=== PATIENT | male | born 1955 | race Caucasian/White ===

== ENCOUNTER 2020-04-06 07:09 | Outpatient (CLI) | payer BC, SELFPAY ==
[2020-04-06 07:24] LABS: Basophils Percent Auto 0.5 % (0.2-1.2); Eosinophils Absolute Auto 0.2 K/mm3 (0-0.3); Eosinophils Percent Auto 2.7 % (0-4.4); Hematocrit 46.5 % (42.0-52.0); Hemoglobin 15.9 g/dL (14.0-18.0); Immature Granulocyte Absolute 0.04 K/mm3 (0.00-0.031); Immature Granulocyte Percent A 0.5 % (0-0.5); Lymphocytes Absolute Auto 2.79 K/mm3 (0.9-3.2); Mean Corpuscular HGB Conc 34.2 g/dl (32-36); Mean Corpuscular Hemoglobin 31.4 pg (26-34); Mean Corpuscular Volume 91.9 fl (80-100); Mean Platelet Volume 10.5 fl (7.4-10.4); Monocytes Absolute Auto 0.8 K/mm3 (0.1-0.6); Monocytes Percent Auto 10.7 % (2.6-8.5); Neutrophils Absolute Auto 3.8 K/mm3 (1.3-6.7); Neutrophils Percent Auto 49.6 % (45.5-73.1); Platelet Count Result 220 k/mm3 (150-375); Red Blood Count 5.06 M/mm3 (4.6-6.20); Red Cell Distribution Width 12.7 % (11.5-14.5); White Blood Count 7.7 K/mm3 (4.5-10.0)
[2020-04-06 08:47] LABS: Alanine Aminotransferase 25 U/L (4-50); Albumin Level 4.2 g/dL (3.5-5.1); Alkaline Phosphatase 40 U/L (38-126); Aspartate Amino Transferase 24 U/L (17-59); Bilirubin,Total 0.6 mg/dL (0.2-1.3); Blood Urea Nitrogen 16 mg/dL (9-20); Carbon Dioxide 30 mmol/L (22-30); Chloride 104 mmol/L (98-107); Cholesterol 138 mg/dL (0-200); Estimated Glomerular Filt Rate 56; Glucose 107 mg/dL (75-110); HDL Direct 45 mg/dL; Potassium 4.1 mmol/L (3.4-5.0); Sodium 140 mmol/L (137-145); Triglycerides 66 mg/dL (<150)
[2020-04-06 08:59] LABS: LDL Cholesterol Direct 85 mg/dL
[2020-04-07 17:44] LABS: Homocysteine 8.6 umol/L (<11.4)
== END 2020-04-06 07:10 | disposition home or self-care (01) ==
PROVIDERS: PCP Internal Medicine; Visit Provider Internal Medicine
DX: I10 Essential (primary) hypertension (principal); Z79.899 Other long term (current) drug therapy; Z12.5 Encounter for screening for malignant neoplasm of prostate
CPT/HCPCS: 36415; 80053; 80061; 83090; 84153; 84443; 85025; G0103

== ENCOUNTER 2020-11-27 06:37 | Outpatient (CLI) | payer BC, SELFPAY ==
[2020-11-27 07:24] LABS: Basophils Percent Auto 0.5 % (0.2-1.2); Eosinophils Absolute Auto 0.2 K/mm3 (0-0.3); Eosinophils Percent Auto 2.6 % (0-4.4); Hematocrit 44.6 % (42.0-52.0); Hemoglobin 15.4 g/dL (14.0-18.0); Immature Granulocyte Absolute 0.02 K/mm3 (0.00-0.031); Immature Granulocyte Percent A 0.3 % (0-0.5); Lymphocytes Absolute Auto 2.05 K/mm3 (0.9-3.2); Mean Corpuscular HGB Conc 34.5 g/dl (32-36); Mean Corpuscular Hemoglobin 31.3 pg (26-34); Mean Corpuscular Volume 90.7 fl (80-100); Mean Platelet Volume 10.9 fl (7.4-10.4); Monocytes Absolute Auto 0.7 K/mm3 (0.1-0.6); Monocytes Percent Auto 11.2 % (2.6-8.5); Neutrophils Absolute Auto 3.6 K/mm3 (1.3-6.7); Neutrophils Percent Auto 54.4 % (45.5-73.1); Platelet Count Result 197 k/mm3 (150-375); Red Blood Count 4.92 M/mm3 (4.6-6.20); Red Cell Distribution Width 12.8 % (11.5-14.5); White Blood Count 6.6 K/mm3 (4.5-10.0)
[2020-11-27 07:31] LABS: Alanine Aminotransferase 26 U/L (4-50); Alkaline Phosphatase 38 U/L (38-126); Anion Gap 4 mmol/L (8-16); Aspartate Amino Transferase 23 U/L (17-59); Bilirubin,Total 0.5 mg/dL (0.2-1.3); Blood Urea Nitrogen 21 mg/dL (9-20); Calcium 9.2 mg/dL (8.4-10.2); Carbon Dioxide 30 mmol/L (22-30); Chloride 106 mmol/L (98-107); Cholesterol 121 mg/dL (0-200); Estimated Glomerular Filt Rate > 60; Glucose 112 mg/dL (75-110); HDL Direct 42 mg/dL; Potassium 4.8 mmol/L (3.4-5.0); Sodium 140 mmol/L (137-145); Triglycerides 62 mg/dL (<150)
[2020-11-27 07:41] LABS: LDL Cholesterol Direct 70 mg/dL
[2020-11-29 13:21] LABS: Hemoglobin A1C 5.4 % (<5.7)
[2020-12-01 00:49] LABS: Vitamin D 1,25 (OH)2 Total 37 pg/mL (18-72); Vitamin D2 1,25 (OH)2 <8 pg/mL; Vitamin D3 1,25 (OH)2 37 pg/mL
== END 2020-11-27 06:38 | disposition home or self-care (01) ==
PROVIDERS: PCP Internal Medicine; Visit Provider Internal Medicine
DX: E55.9 Vitamin D deficiency, unspecified (principal); I10 Essential (primary) hypertension; R73.01 Impaired fasting glucose; Z79.899 Other long term (current) drug therapy
CPT/HCPCS: 36415; 80053; 80061; 82652; 83036; 85025

== ENCOUNTER 2021-05-27 06:51 | Outpatient (CLI) | payer BC, SELFPAY ==
[2021-05-27 07:45] LABS: Basophils Percent Auto 0.6 % (0.2-1.2); Eosinophils Absolute Auto 0.1 K/mm3 (0-0.3); Hematocrit 48.3 % (42.0-52.0); Hemoglobin 16.2 g/dL (14.0-18.0); Immature Granulocyte Absolute 0.02 K/mm3 (0.00-0.031); Immature Granulocyte Percent A 0.3 % (0-0.5); Lymphocytes Percent Auto 31.1 % (18.3-44.2); Mean Corpuscular HGB Conc 33.5 g/dl (32-36); Mean Corpuscular Hemoglobin 30.8 pg (26-34); Mean Corpuscular Volume 91.8 fl (80-100); Mean Platelet Volume 10.7 fl (7.4-10.4); Monocytes Absolute Auto 0.8 K/mm3 (0.1-0.6); Monocytes Percent Auto 12.1 % (2.6-8.5); Neutrophils Absolute Auto 3.5 K/mm3 (1.3-6.7); Neutrophils Percent Auto 53.9 % (45.5-73.1); Platelet Count Result 205 k/mm3 (150-375); Red Blood Count 5.26 M/mm3 (4.6-6.20); Red Cell Distribution Width 12.8 % (11.5-14.5); White Blood Count 6.4 K/mm3 (4.5-10.0)
[2021-05-27 08:01] LABS: Alanine Aminotransferase 26 U/L (4-50); Albumin Level 4.3 g/dL (3.5-5.1); Alkaline Phosphatase 42 U/L (38-126); Anion Gap 7 mmol/L (8-16); Aspartate Amino Transferase 23 U/L (17-59); Bilirubin,Total 0.7 mg/dL (0.2-1.3); Blood Urea Nitrogen 19 mg/dL (9-20); Calcium 9.4 mg/dL (8.4-10.2); Carbon Dioxide 29 mmol/L (22-30); Chloride 105 mmol/L (98-107); Cholesterol 144 mg/dL (0-200); Estimated Glomerular Filt Rate 56; Glucose 100 mg/dL (75-110); HDL Direct 43 mg/dL; Potassium 4.4 mmol/L (3.4-5.0); Sodium 141 mmol/L (137-145); Triglycerides 71 mg/dL (<150)
[2021-05-27 08:14] LABS: LDL Cholesterol Direct 82 mg/dL
[2021-05-27 08:37] LABS: Free T4 Free Thyroxine 0.87 ng/mL (0.78-2.19)
[2021-05-27 08:48] LABS: Hemoglobin A1C 5.4 % (<5.7)
[2021-05-27 11:07] LABS: Prostate Specific Antigen 2.4 ng/mL (< OR = 4.0)
[2021-05-31 15:38] LABS: Vitamin D 1,25 (OH)2 Total 41 pg/mL (18-72); Vitamin D2 1,25 (OH)2 <8 pg/mL; Vitamin D3 1,25 (OH)2 41 pg/mL
== END 2021-05-27 06:52 | disposition home or self-care (01) ==
PROVIDERS: PCP Internal Medicine; Visit Provider Internal Medicine
DX: E55.9 Vitamin D deficiency, unspecified (principal); I10 Essential (primary) hypertension; Z79.899 Other long term (current) drug therapy; Z12.5 Encounter for screening for malignant neoplasm of prostate; R73.01 Impaired fasting glucose
CPT/HCPCS: 36415; 80053; 80061; 82652; 83036; 84153; 84439; 84443; 85025; G0103

== ENCOUNTER 2021-06-09 12:21 | Outpatient (CLI) | payer BC, SELFPAY ==
--- NOTE | 2021-06-09 12:40 | ECHO_ITS ---
Patient Info Name: Christopher Guajardo Age: 65 years : 1955 Gender: Male Ht: 68 in Wt: 181 lbs BSA: 2.00 m2 HR: 71 bpm BP: 130 / 55 mmHg Technical Quality: Good Exam Date: 06/09/2021 1:00 PM Exam Location: [facility] Pulmonary Patient Status: Outpatient Admit Date: 06/09/2021 Staff Ordering Physician: Souleymane Pollard MD Color Developer: MELISSA Attending Provider: Souleymane Pollard MD Referring Physician: Atul LENZ; Exam Type: CA echo doppler color flow Study Info Indications R94.31 - Abnormal electrocardiogram ECG EKG Summary 1. Left ventricular chamber dimension is normal. 2. Left ventricular systolic function is normal, estimated at 65-70%. 3. There is mildly increased left ventricular wall thickness. 4. The left ventricular diastolic function is normal. 5. E/e' 8 is minimally elevated. 6. Left atrial chamber dimension is moderately enlarged. 7. There is mild aortic valve regurgitation. 8. There is trace mitral valve regurgitation. 9. There is trace tricuspid valve regurgitation. 10. No pulmonary hypertension, estimated pulmonary arterial systolic pressure is 32 mmHg. Left Ventricle E/e' 8 is minimally elevated. Left ventricular chamber dimension is normal. Left ventricular systolic function is normal, estimated at 65-70%. There is mildly increased left ventricular wall thickness. The left ventricular diastolic function is normal. Right Ventricle Right ventricular chamber dimension is normal. Right ventricular systolic function is normal. Left Atria Left atrial chamber dimension is moderately enlarged. Right Atria Right atrial chamber dimension is normal. Aortic Valve The aortic valve is trileaflet. There is no aortic valve stenosis. There is mild aortic valve regurgitation. Pulmonic Valve There is no pulmonic regurgitation. Mitral Valve There is no mitral valve stenosis. There is trace mitral valve regurgitation. Tricuspid Valve There is trace tricuspid valve regurgitation. No pulmonary hypertension, estimated pulmonary arterial systolic pressure is 32 mmHg. Pericardium/Pleural There is no pericardial effusion. Inferior Vena Cava Normal inferior vena cava with >50% collapse upon inspiration consistent with normal right atrial pressure, 5 mmHg. Aorta The aortic root size at the sinus of Valsalva is normal. Left Ventricular Outflow Tract Name Value Normal LVOT 2D LVOT Diameter 2.1 cm Pulmonic Valve Name Value Normal PV Doppler PV Peak Gradient 3 mmHg Mitral Valve Name Value Normal MV Doppler MV Decel [place] 371 cm/s2 MV PHT 46 ms MV Area (PHT)
== END 2021-06-09 12:22 | disposition home or self-care (01) ==
LOC: ANHCARD 12:23
PROVIDERS: PCP Internal Medicine; Visit Provider Internal Medicine
DX: R94.31 Abnormal electrocardiogram [ECG] [EKG] (principal); I51.7 Cardiomegaly
CPT/HCPCS: 93306

== ENCOUNTER 2021-06-17 07:45 | Outpatient (CLI) | payer BC, SELFPAY ==
--- NOTE | ~2021-06-17 | US_ITS ---
EXAMINATION: US right upper quadrant DATE: 06/17/2021 08:35 INDICATION: Cholesterolosis of the gallbladder TECHNIQUE: Multiple grayscale and Doppler ultrasound images of the abdomen were obtained. COMPARISON: 08/11/2019 FINDINGS: Bowel gas obscures visualization of the pancreas. The visualized portions of the pancreas a re unremarkable. Cysts of the liver measure up to 1.9 cm. The liver is otherwise normal with normal e chogenicity and echotexture. No surface nodularity. Normal hepatopetal flow in the main portal vein. There is a 5 mm gallbladder polyp. There is a small amount of sludge in the gallbladder. The gallblad jenaro is not distended. The normal common bile duct measures 4 mm. There was no sonographic Aguilar sign . IMPRESSION: 1. 5 mm gallbladder polyp. Reviewed, dictated and finalized at location A. IMPRESSION: 1. 5 mm gallbladder polyp.
== END 2021-06-17 07:46 | disposition home or self-care (01) ==
PROVIDERS: PCP Internal Medicine; Visit Provider Internal Medicine
DX: K82.4 Cholesterolosis of gallbladder (principal)
CPT/HCPCS: 76705

== ENCOUNTER 2021-12-13 06:54 | Outpatient (CLI) | payer BC, SELFPAY ==
[2021-12-13 08:20] LABS: Add Urine Microscopic? NO; Appearance Urine Clear (Clear); Bilirubin Urine Negative (Negative); Blood Urine Negative (Negative); Color Urine Straw (Yellow); Glucose Urine UA Negative (Negative); Ketones Urine Negative (Negative); Leukocyte Esterase Ur Negative LEU/UL (Negative); Nitrate Urine Negative (Negative); Protein Urine Negative (Negative); Specific Grav Ur 1.012 (1.001-1.035); Urobilinogen Urine Negative mg/dL (<2.0)
[2021-12-13 08:24] LABS: Alanine Aminotransferase 22 U/L (4-50); Albumin Level 4.1 g/dL (3.5-5.1); Alkaline Phosphatase 40 U/L (38-126); Anion Gap 3 mmol/L (8-16); Aspartate Amino Transferase 21 U/L (17-59); Bilirubin,Total 0.4 mg/dL (0.2-1.3); Blood Urea Nitrogen 16 mg/dL (9-20); Calcium 9.4 mg/dL (8.4-10.2); Carbon Dioxide 28 mmol/L (22-30); Chloride 106 mmol/L (98-107); Cholesterol 131 mg/dL (0-200); Estimated Glomerular Filt Rate 56; Glucose 104 mg/dL (65-110); HDL Direct 38 mg/dL; Potassium 4.1 mmol/L (3.4-5.0); Sodium 137 mmol/L (137-145); Triglycerides 95 mg/dL (<150)
[2021-12-13 08:28] LABS: Hemoglobin A1C 5.6 % (<5.7)
[2021-12-13 08:34] LABS: LDL Cholesterol Direct 72 mg/dL
[2021-12-13 08:47] LABS: Free T4 Free Thyroxine 0.81 ng/mL (0.78-2.19); Vitamin D 25 Hydroxy 46.7 ng/mL
[2021-12-17 01:51] LABS: Insulin Level Total 11.1 uIU/mL (<=19.6)
== END 2021-12-13 06:55 | disposition home or self-care (01) ==
LOC: ANHLAB 06:56
PROVIDERS: PCP Internal Medicine; Visit Provider Internal Medicine
DX: I10 Essential (primary) hypertension (principal); K21.9 Gastro-esophageal reflux disease without esophagitis; Z79.899 Other long term (current) drug therapy; R73.01 Impaired fasting glucose; E55.9 Vitamin D deficiency, unspecified
CPT/HCPCS: 36415; 80053; 80061; 81003; 82306; 83036; 83525; 84439; 84443

== ENCOUNTER 2022-07-18 07:14 | Outpatient (CLI) | payer BC, SELFPAY ==
[2022-07-18 08:26] LABS: Basophils Percent Auto 0.7 % (0.2-1.2); Eosinophils Absolute Auto 0.2 K/mm3 (0-0.3); Eosinophils Percent Auto 2.5 % (0-4.4); Hematocrit 45.7 % (42.0-52.0); Hemoglobin 15.4 g/dL (14.0-18.0); Immature Granulocyte Absolute 0.04 K/mm3 (0.00-0.031); Immature Granulocyte Percent A 0.7 % (0-0.5); Lymphocytes Absolute Auto 1.88 K/mm3 (0.9-3.2); Lymphocytes Percent Auto 31.9 % (18.3-44.2); Mean Corpuscular HGB Conc 33.7 g/dl (32-36); Mean Platelet Volume 10.8 fl (7.4-10.4); Monocytes Absolute Auto 0.8 K/mm3 (0.1-0.6); Monocytes Percent Auto 13.1 % (2.6-8.5); Neutrophils Percent Auto 51.1 % (45.5-73.1); Platelet Count Result 220 k/mm3 (150-375); Red Blood Count 4.97 M/mm3 (4.6-6.20); Red Cell Distribution Width 13.2 % (11.5-14.5); White Blood Count 5.9 K/mm3 (4.5-10.0)
[2022-07-18 08:35] LABS: Alanine Aminotransferase 22 U/L (6-50); Albumin Level 4.1 g/dL (3.5-5.1); Alkaline Phosphatase 39 U/L (38-126); Anion Gap 4 mmol/L (8-16); Aspartate Amino Transferase 25 U/L (17-59); Bilirubin,Total 0.5 mg/dL (0.2-1.3); Blood Urea Nitrogen 17 mg/dL (9-20); Calcium 9.2 mg/dL (8.4-10.2); Carbon Dioxide 30 mmol/L (22-30); Chloride 105 mmol/L (98-107); Cholesterol 134 mg/dL (0-200); Estimated Glomerular Filt Rate > 60; Glucose 102 mg/dL (65-110); HDL Direct 41 mg/dL; Hemoglobin A1C 5.4 % (<5.7); Potassium 4.2 mmol/L (3.4-5.0); Sodium 139 mmol/L (137-145); Triglycerides 63 mg/dL (<150)
[2022-07-18 08:46] LABS: LDL Cholesterol Direct 69 mg/dL
[2022-07-18 09:06] LABS: Prostate Specific Antigen 2.7 ng/mL (< OR = 4.0)
[2022-07-18 09:08] LABS: Free T4 Free Thyroxine 0.95 ng/mL (0.78-2.19); Vitamin D 25 Hydroxy 48.9 ng/mL
== END 2022-07-18 07:15 | disposition home or self-care (01) ==
LOC: ANHLAB 07:16
PROVIDERS: PCP Internal Medicine; Visit Provider Internal Medicine
DX: R73.01 Impaired fasting glucose (principal); I10 Essential (primary) hypertension; E55.9 Vitamin D deficiency, unspecified; Z79.899 Other long term (current) drug therapy
CPT/HCPCS: 36415; 80053; 80061; 82306; 83036; 84153; 84439; 84443; 85025; G0103

== ENCOUNTER 2022-08-25 08:38 | Outpatient (CLI) | payer BC, SELFPAY ==
--- NOTE | 2022-08-25 09:06 | ECHO_ITS ---
Patient Info Name: Christopher Guajardo Age: 66 years : 1955 Gender: Male Ht: 68 in Wt: 184 lbs BSA: 2.02 m2 HR: 66 bpm BP: 113 / 54 mmHg Technical Quality: Good Exam Date: 08/25/2022 9:52 AM Exam Location: [facility] Pulmonary Patient Status: Outpatient Admit Date: 08/25/2022 Staff Ordering Physician: Souleymane Pollard MD Directory Clerk: Gavi Ferreira RCS Attending Provider: Souleymane Pollard MD Referring Physician: Atul LENZ; Exam Type: CA echo doppler color flow Study Info Indications - abnormal ekg Complete two-dimensional, color flow and Doppler transthoracic echocardiogram is performed. Summary 1. Complete two-dimensional, color flow and Doppler transthoracic echocardiogram is performed. 2. Left ventricular chamber dimension is normal. 3. Left ventricular systolic function is normal, estimated at 65-70%. 4. The left ventricular diastolic function is grade II diastolic dysfunction. 5. E/e' 13 is mildly elevated. 6. Left atrial chamber dimension is moderately enlarged. 7. There is mild aortic valve sclerosis. 8. There is mild to moderate aortic valve regurgitation. 9. No pulmonary hypertension, estimated pulmonary arterial systolic pressure is 39 mmHg. Left Ventricle E/e' 13 is mildly elevated. Left ventricular chamber dimension is normal. Left ventricular systolic function is normal, estimated at 65-70%. The left ventricular diastolic function is grade II diastolic dysfunction. Right Ventricle Right ventricular chamber dimension is normal. Right ventricular systolic function is normal. Left Atria Left atrial chamber dimension is moderately enlarged. Right Atria Right atrial chamber dimension is normal. Aortic Valve The aortic valve is trileaflet. There is mild aortic valve sclerosis. There is no aortic valve stenosis. There is mild to moderate aortic valve regurgitation. Pulmonic Valve There is no pulmonic regurgitation. Mitral Valve There is no mitral valve stenosis. There is no mitral valve regurgitation. Tricuspid Valve There is no tricuspid valve regurgitation. No pulmonary hypertension, estimated pulmonary arterial systolic pressure is 39 mmHg. Pericardium/Pleural There is no pericardial effusion. Inferior Vena Cava Normal inferior vena cava with >50% collapse upon inspiration consistent with normal right atrial pressure, 5 mmHg. Aorta The aortic root size at the sinus of Valsalva is normal. Left Ventricular Outflow Tract Name Value Normal LVOT 2D LVOT Diameter 2.0 cm LVOT Doppler LVOT Peak Gradient 8 mmHg LVOT Mean Gradient 3 mmHg LVOT VTI 23 cm LVOT VTI/AV VTI Ratio 0.9 LVOT Stroke Volume 70 ml LVOT CO 15.8 l/min LVOT CI 7.8 l/min/m2 Pulmonic Valve Name Value Normal
== END 2022-08-25 08:39 | disposition home or self-care (01) ==
LOC: ANHCARD 08:41
PROVIDERS: PCP Internal Medicine; Visit Provider Internal Medicine
DX: R94.31 Abnormal electrocardiogram [ECG] [EKG] (principal)
CPT/HCPCS: 93306

== ENCOUNTER 2022-12-20 06:55 | Outpatient (CLI) | payer MEDICARE, SELFPAY ==
[2022-12-20 08:02] LABS: Alanine Aminotransferase 31 U/L (6-50); Albumin Level 4.3 g/dL (3.5-5.1); Alkaline Phosphatase 39 U/L (38-126); Anion Gap 2 mmol/L (8-16); Aspartate Amino Transferase 25 U/L (17-59); Bilirubin,Total 0.7 mg/dL (0.2-1.3); Blood Urea Nitrogen 19 mg/dL (9-20); Calcium 9.1 mg/dL (8.4-10.2); Carbon Dioxide 32 mmol/L (22-30); Chloride 102 mmol/L (98-107); Cholesterol 150 mg/dL (0-200); Estimated Glomerular Filt Rate 55; Glucose 101 mg/dL (65-110); HDL Direct 44 mg/dL; Potassium 4.2 mmol/L (3.4-5.0); Sodium 136 mmol/L (137-145); Triglycerides 75 mg/dL (<150)
[2022-12-20 08:12] LABS: LDL Cholesterol Direct 78 mg/dL
[2022-12-20 08:25] LABS: Hemoglobin A1C 5.5 % (<5.7)
[2022-12-20 09:01] LABS: Vitamin D 25 Hydroxy 43.3 ng/mL
== END 2022-12-20 06:56 | disposition home or self-care (01) ==
PROVIDERS: PCP Internal Medicine; Visit Provider Internal Medicine
DX: R73.01 Impaired fasting glucose (principal); I10 Essential (primary) hypertension; Z79.899 Other long term (current) drug therapy; Z13.220 Encounter for screening for lipoid disorders; E55.9 Vitamin D deficiency, unspecified
CPT/HCPCS: 36415; 80053; 80061; 82306; 83036

== ENCOUNTER 2023-04-12 10:32 | Outpatient (NON) | payer MEDICARE, OTHER, SELFPAY | END 2023-04-12 10:33 | disposition home or self-care (01) | LOC: ANHLAB 04-13 10:35 | PROVIDERS: PCP Internal Medicine; Visit Provider Nurse Practitioner | DX: D22.5 Melanocytic nevi of trunk (principal); L81.4 Other melanin hyperpigmentation | CPT/HCPCS: 88305 ==

== ENCOUNTER 2023-04-13 00:07 | Day surgery (SDC) | payer MEDICARE, OTHER, SELFPAY ==
[2023-03-28 10:48] VITALS: BMI 29.1
[2023-04-13 06:20] VITALS: BP 129/64; PULSE 66; RESP 16; TEMP 36.2; O2SAT 98
[2023-04-13] MEDS: LACTATED RINGERS 1,000 ML 150 ML IV CONT (06:28)
--- NOTE | 2023-04-13 07:12 | WPDANESEPPF ---
Anes - Initial Pre Proc Eval Procedure: Operation Date: 04/13/23 07:30 Proposed Procedures p Colonoscopy - Sheldon Amaral MD Date/Time: 04/13/23 07:12 Surgeon: Sheldon Amaral MD Pre Op Diagnosis: hx colon polyps Patient Data Age: 67 Gender: M Height: 1.73 m Weight: 85.5 kg Last Vital Signs Temp 97.1 F L 04/13/23 06:20 Pulse 66 04/13/23 06:20 Resp 16 04/13/23 06:20 BP 129/64 04/13/23 06:20 Pulse Ox 98 04/13/23 06:20 O2 Del Method Room Air 04/13/23 06:20 Allergies Allergy/AdvReac Type Severity Reaction Status Date / Time Penicillins Allergy Unknown UNSURE OF Verified 04/13/23 06:18 REACTION Home Medications Medication Instructions Recorded Confirmed Type pantoprazole 20 mg tablet,delayed 20 mg PO QAM #90 tabs 10/19/22 04/13/23 Rx release losartan 50 mg tablet 50 mg PO DAILY #90 tabs 12/19/22 04/13/23 Rx tamsulosin 0.4 mg capsule See Rx Instructions .Route 04/11/23 04/13/23 Rx .COMPLEX #90 caps Patient hx anesthesia problems: none Family hx anesthesia problems: none Results Review: All pre-operative results and documents have been reviewed as part of the pre-operative evaluation. [facility] Past Medical History Medical History Abnormal EKG Acid reflux Benign essential hypertension BMI 28.0-28.9,adult BMI 29.0-29.9,adult BMI 30.0-30.9,adult BPH (benign prostatic hyperplasia) Colon cancer screening Encounter for preventive health examination Encounter for routine adult health examination with abnormal findings Encounter for routine adult health examination without abnormal findings Encounter for special screening examination for neoplasm of prostate FHx: colon cancer FHx: prostate cancer Gallbladder polyp GERD (gastroesophageal reflux disease) Hearing loss History of colon polyps Left shoulder pain Mild mitral valve regurgitation Need for influenza vaccination Nocturia On snf drug therapy Sinus drainage Tinnitus Vitamin D deficiency Family History Family History Father Family history of malignant neoplasm Patient's father is , Onset Age: 83 Mother Hypertension Family history of allergic disorder Other Carcinoma of colon Skin cancer Stomach cancer Social History Social History Smoking status: Never smoker Second hand tobacco smoke exposure: No Alcohol intake: current Drinks per week: 2 Substance use: never Substance use type: does not use Living arrangements: with family Spiritual care concerns: No Anes - Eval Final PreProcedure Day of Procedure 04/13/23 07:12 Patient weight: normal Heart: regular rate and rhythm Lungs: clear to auscultation Airway: Mallampati scale class II Neurological: alert and oriented Last oral intake: >/= 8 hours ASA classification: II Emergent: no Anesthetic plan: proceed Anesthesia type and monitoring: general GIVS and standard monitoring Results Review: All pre-operative results and documents have been reviewed as part of the pre-operative evaluation. Informed Consent: The patient's anesthetic plan and its attendant risks and benefits were discussed with the patient/family/POA. Questions were solicited and answers provided to the satisfaction of the patient/family/POA.
--- NOTE | 2023-04-13 07:31 | PM.HPGS ---
History of Present Illness History of Present Illness Consent: Risks, benefits, and alternatives have been discussed and questions answered. Patient agrees to proceed with procedure. Chief complaint: hx colon polyps Narrative: Christopher Guajardo Jr. is a 67 year old male Presents for screening colonoscopy. Patient's current weight appetite and bowel movements are normal. Patient denies abdominal pain. He has had no bleeding. Family history noncontributory. Patient has a history of adenomatous colon polyp removed from the colon at previous colonoscopy in 2017. Review of Systems Review of Systems: Review of systems noncontributory. [facility] Past Medical History Medical History Abnormal EKG Acid reflux Benign essential hypertension BMI 28.0-28.9,adult BMI 29.0-29.9,adult BMI 30.0-30.9,adult BPH (benign prostatic hyperplasia) Colon cancer screening Encounter for preventive health examination Encounter for routine adult health examination with abnormal findings Encounter for routine adult health examination without abnormal findings Encounter for special screening examination for neoplasm of prostate FHx: colon cancer FHx: prostate cancer Gallbladder polyp GERD (gastroesophageal reflux disease) Hearing loss History of colon polyps Left shoulder pain Mild mitral valve regurgitation Need for influenza vaccination Nocturia On halfway drug therapy Sinus drainage Tinnitus Vitamin D deficiency Family History Family History Father Family history of malignant neoplasm Patient's father is , Onset Age: 83 Mother Hypertension Family history of allergic disorder Other Carcinoma of colon Skin cancer Stomach cancer Social History Social History Smoking status: Never smoker Second hand tobacco smoke exposure: No Alcohol intake: current Drinks per week: 2 Substance use: never Substance use type: does not use Living arrangements: with family Spiritual care concerns: No Meds Home Medications and Allergies Home Medications Medication Instructions Recorded Confirmed Type pantoprazole 20 mg tablet,delayed 20 mg PO QAM #90 tabs 10/19/22 04/13/23 Rx release losartan 50 mg tablet 50 mg PO DAILY #90 tabs 12/19/22 04/13/23 Rx tamsulosin 0.4 mg capsule See Rx Instructions .Route 04/11/23 04/13/23 Rx .COMPLEX #90 caps Allergies Allergy/AdvReac Type Severity Reaction Status Date / Time Penicillins Allergy Unknown UNSURE OF Verified 04/13/23 06:18 REACTION Vital Signs Vital Signs - 24 hr 04/13/23 06:20 Temperature 97.1 F L Pulse Rate 66 Respiratory Rate 16 Blood Pressure 129/64 Pulse Oximetry 98 Oxygen Delivery Room Air Exam Narrative: Physical exam reveals patient to be alert. Vital signs stable. HEENT exam is unremarkable. Patient is anicteric. Lungs are clear to auscultation and percussion. Heart is without murmur or extra sounds. Abdomen bowel sounds are present soft nontender with no organomegaly. Digital external rectal exam is normal. Assessment and Plan Assessment and plan (1) History of colon polyps: Code(s): Z86.010 - Personal history of colonic polyps Status: Acute Assessment and Plan: Patient has a prior history of colon polyps. Plan for surveillance colonoscopy now and consider this at 5 year intervals in the future.
[2023-04-13] MEDS: SIMETHICONE ORAL SUSPENSION 20 MG/0.3 ML 30 ML BOTTLE 0.6 ML IRRIGATION (07:41)
[2023-04-13 07:50] VITALS: BP 95/63; PULSE 64; RESP 14; O2SAT 95
[2023-04-13 08:00] VITALS: BP 114/70; PULSE 64; RESP 18; O2SAT 96
[2023-04-13 08:10] VITALS: BP 116/70; PULSE 66; RESP 18; O2SAT 97
== END 2023-04-13 08:20 | disposition home or self-care (01) ==
PROVIDERS: PCP Internal Medicine; Visit Provider Internal Medicine Gastroenterology
PROC: 0DJD8ZZ Inspection of Lower Intestinal Tract, Via Natural or Artificial Opening Endoscopic (ICD-10-PCS; CPT 45378; principal; 2023-04-13 07:30)
DX: Z12.11 Encounter for screening for malignant neoplasm of colon (principal); D12.2 Benign neoplasm of ascending colon; K64.8 Other hemorrhoids; K21.9 Gastro-esophageal reflux disease without esophagitis; I10 Essential (primary) hypertension; N40.0 Benign prostatic hyperplasia without lower urinary tract symptoms
CPT/HCPCS: 45385; 88305; J2704; J7120

== ENCOUNTER 2023-05-02 06:35 | Outpatient (CLI) | payer MEDICARE, OTHER, SELFPAY ==
[2023-05-02 07:14] LABS: Basophils Percent Auto 0.6 % (0.2-1.2); Eosinophils Absolute Auto 0.2 K/mm3 (0-0.3); Eosinophils Percent Auto 2.6 % (0-4.4); Hematocrit 48.8 % (42.0-52.0); Hemoglobin 16.5 g/dL (14.0-18.0); Immature Granulocyte Absolute 0.04 K/mm3 (0.00-0.031); Immature Granulocyte Percent A 0.6 % (0-0.5); Lymphocytes Absolute Auto 1.95 K/mm3 (0.9-3.2); Lymphocytes Percent Auto 27.2 % (18.3-44.2); Mean Corpuscular HGB Conc 33.8 g/dl (32-36); Mean Corpuscular Hemoglobin 31.1 pg (26-34); Mean Corpuscular Volume 91.9 fl (80-100); Mean Platelet Volume 10.9 fl (7.4-10.4); Monocytes Absolute Auto 0.7 K/mm3 (0.1-0.6); Monocytes Percent Auto 9.7 % (2.6-8.5); Neutrophils Absolute Auto 4.3 K/mm3 (1.3-6.7); Neutrophils Percent Auto 59.3 % (45.5-73.1); Platelet Count Result 234 k/mm3 (150-375); Red Blood Count 5.31 M/mm3 (4.6-6.20); White Blood Count 7.2 K/mm3 (4.5-10.0)
[2023-05-02 07:35] LABS: Alanine Aminotransferase 37 U/L (6-50); Albumin Level 4.3 g/dL (3.5-5.1); Alkaline Phosphatase 37 U/L (38-126); Anion Gap 6 mmol/L (8-16); Aspartate Amino Transferase 28 U/L (17-59); Bilirubin,Total 0.6 mg/dL (0.2-1.3); Blood Urea Nitrogen 24 mg/dL (9-20); Calcium 9.7 mg/dL (8.4-10.2); Carbon Dioxide 30 mmol/L (22-30); Chloride 104 mmol/L (98-107); Cholesterol 160 mg/dL (0-200); Estimated Glomerular Filt Rate 55; Glucose 109 mg/dL (65-110); HDL Direct 51 mg/dL; Potassium 4.9 mmol/L (3.4-5.0); Sodium 140 mmol/L (137-145); Triglycerides 74 mg/dL (<150)
[2023-05-02 07:46] LABS: LDL Cholesterol Direct 93 mg/dL
[2023-05-02 07:52] LABS: Free T4 Free Thyroxine 0.98 ng/mL (0.78-2.19); Vitamin D 25 Hydroxy 51.8 ng/mL
== END 2023-05-02 06:36 | disposition home or self-care (01) ==
PROVIDERS: PCP Internal Medicine; Visit Provider Internal Medicine
DX: I10 Essential (primary) hypertension (principal); Z79.899 Other long term (current) drug therapy; Z13.29 Encounter for screening for other suspected endocrine disorder; E55.9 Vitamin D deficiency, unspecified; Z13.220 Encounter for screening for lipoid disorders
CPT/HCPCS: 36415; 80053; 80061; 82306; 84439; 84443; 85025

== ENCOUNTER 2023-05-14 06:31 | Outpatient (CLI) | payer MEDICARE, OTHER, SELFPAY ==
[2023-05-17 10:40] LABS: Testosterone Total 495 ng/dL (250-1100)
== END 2023-05-14 06:32 | disposition home or self-care (01) ==
PROVIDERS: PCP Internal Medicine; Visit Provider Internal Medicine
DX: R53.83 Other fatigue (principal)
CPT/HCPCS: 36415; 84403

== ENCOUNTER 2023-05-16 06:31 | Outpatient (CLI) | payer MEDICARE, OTHER, SELFPAY ==
[2023-05-19 09:05] LABS: Testosterone Total 478 ng/dL (250-1100)
== END 2023-05-16 06:32 | disposition home or self-care (01) ==
PROVIDERS: PCP Internal Medicine; Visit Provider Internal Medicine
DX: R53.83 Other fatigue (principal)
CPT/HCPCS: 36415; 84403

== ENCOUNTER 2023-06-06 09:55 | Outpatient (CLI) | payer MEDICARE, OTHER, SELFPAY ==
--- NOTE | ~2023-06-06 | US_ITS ---
EXAMINATION: US soft tissue buttock RT DATE: 06/06/2023 10:51 INDICATION: Localized swelling, mass or lump at the right buttock TECHNIQUE: Multiple grayscale and Doppler ultrasound images of the region of concern at the inferior right buttock were obtained. COMPARISON: CT dated 08/20/2010 FINDINGS: 6.0 x 2.3 x 5.4 cm ovoid hypoechoic mass with smooth well-defined margins in the subcutaneous tissues at the region of concern. This does not appear significantly changed in size when compared with CT d ated 08/20/2010 on which the masses demonstrated macroscopic fat attenuation consistent with a subcuta neous lipoma. IMPRESSION: 1. No significant change since 2009 in a 6.0 cm subcutaneous lipoma at the inferior right buttock. Reviewed, dictated and finalized at location A. IMPRESSION: 1. No significant change since 2009 in a 6.0 cm subcutaneous lipoma at the infe rior right buttock.
== END 2023-06-06 09:56 | disposition home or self-care (01) ==
PROVIDERS: PCP Internal Medicine; Visit Provider Internal Medicine
DX: D17.39 Benign lipomatous neoplasm of skin and subcutaneous tissue of other sites (principal)
CPT/HCPCS: 76705

== ENCOUNTER 2023-09-10 06:48 | Outpatient (CLI) | payer MEDICARE, OTHER, SELFPAY ==
[2023-09-10 07:25] LABS: Alanine Aminotransferase 28 U/L (6-50); Albumin Level 4.1 g/dL (3.5-5.1); Alkaline Phosphatase 34 U/L (38-126); Anion Gap 2 mmol/L (8-16); Aspartate Amino Transferase 22 U/L (17-59); Bilirubin,Total 0.9 mg/dL (0.2-1.3); Blood Urea Nitrogen 18 mg/dL (9-20); Calcium 9.1 mg/dL (8.4-10.2); Carbon Dioxide 31 mmol/L (22-30); Chloride 105 mmol/L (98-107); Cholesterol 130 mg/dL (0-200); Estimated Glomerular Filt Rate > 60; Glucose 100 mg/dL (65-110); HDL Direct 39 mg/dL; Potassium 4.2 mmol/L (3.4-5.0); Sodium 138 mmol/L (137-145); Triglycerides 117 mg/dL (<150)
[2023-09-10 07:36] LABS: LDL Cholesterol Direct 68 mg/dL
[2023-09-10 07:55] LABS: Prostate Specific Antigen 2.5 ng/mL (< OR = 4.0)
== END 2023-09-10 06:49 | disposition home or self-care (01) ==
LOC: ANHLAB 06:50
PROVIDERS: PCP Internal Medicine; Visit Provider Internal Medicine
DX: Z12.5 Encounter for screening for malignant neoplasm of prostate (principal); I10 Essential (primary) hypertension; Z13.220 Encounter for screening for lipoid disorders; Z79.899 Other long term (current) drug therapy
CPT/HCPCS: 36415; 80053; 80061; 84153; G0103

== ENCOUNTER 2023-11-13 12:43 | Outpatient (NON) | payer MEDICARE, SELFPAY | END 2023-11-13 12:44 | disposition home or self-care (01) | PROVIDERS: PCP Internal Medicine; Visit Provider Nurse Practitioner | DX: C44.719 Basal cell carcinoma of skin of left lower limb, including hip (principal) | CPT/HCPCS: 88305 ==

== ENCOUNTER 2023-12-14 12:19 | Outpatient (CLI) | payer MEDICARE, OTHER, SELFPAY | END 2023-12-14 12:20 | disposition home or self-care (01) | PROVIDERS: PCP Internal Medicine; Visit Provider Internal Medicine | DX: H91.90 Unspecified hearing loss, unspecified ear (principal) | CPT/HCPCS: 92557; 92567 ==

== ENCOUNTER 2024-01-25 11:30 | Outpatient (RCR) | payer SELFPAY | END 2024-03-25 23:59 | disposition home or self-care (01) | LOC: ANHAUDASC 11:30 | PROVIDERS: PCP Internal Medicine; Visit Provider Internal Medicine | DX: Z46.1 Encounter for fitting and adjustment of hearing aid (principal) | CPT/HCPCS: 99199; V5261 ==

== ENCOUNTER 2024-02-21 06:41 | Outpatient (CLI) | payer MEDICARE, OTHER, SELFPAY ==
[2024-02-21 07:31] LABS: Basophils Percent Auto 0.5 % (0.2-1.2); Eosinophils Absolute Auto 0.2 K/mm3 (0-0.3); Eosinophils Percent Auto 2.3 % (0-4.4); Hematocrit 48.2 % (42.0-52.0); Hemoglobin 15.9 g/dL (14.0-18.0); Immature Granulocyte Absolute 0.03 K/mm3 (0.00-0.031); Immature Granulocyte Percent A 0.4 % (0-0.5); Lymphocytes Percent Auto 32.7 % (18.3-44.2); Mean Corpuscular Hemoglobin 30.2 pg (26-34); Mean Corpuscular Volume 91.6 fl (80-100); Mean Platelet Volume 10.8 fl (7.4-10.4); Monocytes Absolute Auto 0.8 K/mm3 (0.1-0.6); Monocytes Percent Auto 10.2 % (2.6-8.5); Neutrophils Percent Auto 53.9 % (45.5-73.1); Platelet Count Result 223 k/mm3 (150-375); Red Blood Count 5.26 M/mm3 (4.6-6.20); White Blood Count 7.3 K/mm3 (4.5-10.0)
[2024-02-21 07:46] LABS: Hemoglobin A1C 5.5 % (<5.7)
[2024-02-21 07:48] LABS: Alanine Aminotransferase 29 U/L (6-50); Albumin Level 4.4 g/dL (3.5-5.1); Alkaline Phosphatase 44 U/L (38-126); Anion Gap 7 mmol/L (4-12); Aspartate Amino Transferase 25 U/L (17-59); Bilirubin,Total 0.9 mg/dL (0.2-1.3); Blood Urea Nitrogen 23 mg/dL (9-20); Calcium 9.8 mg/dL (8.4-10.2); Carbon Dioxide 27 mmol/L (22-30); Chloride 106 mmol/L (98-107); Cholesterol 154 mg/dL (0-200); Estimated Glomerular Filt Rate > 60; Glucose 119 mg/dL (65-110); HDL Direct 47 mg/dL; Potassium 4.4 mmol/L (3.4-5.0); Sodium 140 mmol/L (137-145); Triglycerides 88 mg/dL (<150)
[2024-02-21 08:00] LABS: LDL Cholesterol Direct 91 mg/dL
[2024-02-21 08:16] LABS: Free T4 Free Thyroxine 1.02 ng/mL (0.78-2.19); Vitamin D 25 Hydroxy 63.5 ng/mL
== END 2024-02-21 06:42 | disposition home or self-care (01) ==
LOC: ANHLAB 06:46
PROVIDERS: PCP Internal Medicine; Visit Provider Internal Medicine
DX: E55.9 Vitamin D deficiency, unspecified (principal); I10 Essential (primary) hypertension; R53.83 Other fatigue; R73.01 Impaired fasting glucose; Z79.899 Other long term (current) drug therapy
CPT/HCPCS: 36415; 80053; 80061; 82306; 83036; 84439; 84443; 85025

== ENCOUNTER 2024-03-31 09:42 | Outpatient (CLI) | payer MEDICARE, OTHER, SELFPAY ==
--- NOTE | 2024-04-15 15:11 | WPDSLEEPSTUD ---
Sleep Study Date of Study: 03/31/24 Ordering Provider: Souleymane Pollard MD Interpreting Physician: Uma Menjivar DO Sleep Study Type: Split Polysomnogram Height: 1.73 m Weight: 85.275 kg Body Mass Index: 28.5 Neck Circumference (inches): 17 [place]: 11 Reason for Sleep Study Difficulty staying asleep Sleep History The patient is a 68-year-old male that had a sleep study ordered by his primary care physician for evaluation of sleep. The patient denies awakening from sleep short of breath. He rarely awakens night with heartburn, belching or cough. He frequently snores and it is frequently loud enough that others complain. He frequently has trouble sleeping when he has a cold. He denies waking up gasping for air throughout the night. He frequently has breathing problems at night observed by himself or others. He denies sweating excessively at night. He denies having heart palpitations or irregular heartbeats during the night. He frequently falls asleep during the day but never while driving. He denies sleep paralysis, cataplexy and hypnagogic / hypnopompic hallucinations. He denies having trouble at school or work due to sleepiness. He frequently has nightmares. He rarely remembers his dreams. He frequently has thoughts racing through his mind. He denies feeling sad or depressed. He occasionally has anxiety. He denies having muscular tension. He denies noticing parts of his body jerk. He occasionally kicks during the night. He denies having crawling and aching feelings in his legs and denies having leg pain during the night. He frequently grinds his teeth during sleep but never awakens with morning jaw pain. He denies being bothered by pain during the day and denies being awakened by pain during the night. He occasionally wakes up feeling stiff in the morning. He occasionally wakes up with sore or achy muscles. He denies waking up with pain in the neck, spine or other joints. He goes to bed at 9:00 p.m. on both weekdays and weekends. He is able to fall asleep immediately. He wakes up 3 times throughout the night for unknown reasons. When he awakens, he will research topics on his cellphone for school and at typically takes 90 minutes to fall back asleep. He wakes up at 5:00 a.m. on both weekdays and weekends. He typically gets 5-6 hours of sleep per night. He will stay in bed for 5 minutes after waking up in the morning. He currently lives with his . He denies consuming any caffeinated beverages within 2 hours of bedtime. He denies engaging in physical exercise before bedtime. He will watch television before falling asleep. He will take naps in the afternoon or the evening but they are not refreshing. He consumes 2 caffeinated beverages per day. He consumes 4 beers per week. He denies tobacco and recreational drug use. [facility] Past Medical History Medical History Abnormal EKG Acid reflux Benign essential hypertension BMI 28.0-28.9,adult BMI 29.0-29.9,adult BMI 30.0-30.9,adult BPH (benign prostatic hyperplasia) Colon cancer screening Encounter for preventive health examination Encounter for routine adult health examination with abnormal findings Encounter for routine adult health examination without abnormal findings Encounter for special screening examination for neoplasm of prostate Fatigue FHx: colon cancer FHx: prostate cancer Gallbladder polyp GERD (gastroesophageal reflux disease) Hearing loss History of colon polyps Hypersomnolence Left shoulder pain Mass of buttock Mild mitral valve regurgitation Need for influenza vaccination Nocturia On terminal worker drug therapy Sinus drainage Tinnitus Vitamin D deficiency Family History Family History Father Family history of malignant neoplasm Patient's father is , Onset Age: 83 Mother Hypertension Family history of aller
[2024-04-15 15:27] VITALS: BMI 28.5
== END 2024-04-01 07:06 | disposition home or self-care (01) ==
LOC: ANHCSM 09:44
PROVIDERS: PCP Internal Medicine; Visit Provider Internal Medicine
DX: G47.33 Obstructive sleep apnea (adult) (pediatric) (principal); G47.10 Hypersomnia, unspecified; I10 Essential (primary) hypertension
CPT/HCPCS: 95811

== ENCOUNTER 2024-06-10 07:22 | Outpatient (CLI) | payer MEDICARE, OTHER, SELFPAY ==
--- NOTE | 2024-06-10 07:27 | ECHO_ITS ---
Patient Info Name: Christopher Guajardo Age: 68 years : 1955 Gender: Male Ht: 68 in Wt: 187 lbs BSA: 2.04 m2 HR: 68 bpm BP: 124 / 68 mmHg Heart Rhythm: Sinus Rhythm Technical Quality: Good Exam Date: 06/10/2024 7:38 AM Exam Location: Echo Lab Patient Status: Outpatient Admit Date: 06/10/2024 Staff Ordering Physician: Souleymane Pollard MD Seam Press Operator: Sabra Jasmine RDCS Attending Provider: Souleymane Pollard MD Referring Physician: Atul LENZ; Exam Type: CA echo doppler color flow Study Info Indications R94.31 - Abnormal electrocardiogram ECG EKG Complete two-dimensional, color flow and Doppler transthoracic echocardiogram is performed. Summary 1. Complete two-dimensional, color flow and Doppler transthoracic echocardiogram is performed. 2. Left ventricular chamber dimension is normal. 3. Left ventricular systolic function is normal, estimated at 65-70%. 4. The left ventricular diastolic function is abnormal. 5. E/e '10 is mildly elevated. 6. Left atrial chamber dimension is mildly enlarged. 7. There is mild aortic valve sclerosis. 8. There is mild to moderate aortic valve regurgitation. 9. There is trace mitral valve regurgitation. 10. There is trace tricuspid valve regurgitation. 11. No pulmonary hypertension, estimated pulmonary arterial systolic pressure is 25 mmHg. Left Ventricle E/e '10 is mildly elevated. Left ventricular chamber dimension is normal. Left ventricular systolic function is normal, estimated at 65-70%. The left ventricular diastolic function is abnormal. Right Ventricle Right ventricular systolic function is normal and with normal TAPSE 1.8 cm. Right ventricular chamber dimension is normal. Left Atria Left atrial chamber dimension is mildly enlarged. Right Atria Right atrial chamber dimension is normal. Aortic Valve The aortic valve is trileaflet. There is mild aortic valve sclerosis. There is no aortic valve stenosis. There is mild to moderate aortic valve regurgitation. Pulmonic Valve There is no pulmonic regurgitation. Mitral Valve There is no mitral valve stenosis. There is trace mitral valve regurgitation. Tricuspid Valve There is trace tricuspid valve regurgitation. No pulmonary hypertension, estimated pulmonary arterial systolic pressure is 25 mmHg. Pericardium/Pleural There is no pericardial effusion. Inferior Vena Cava Normal inferior vena cava with >50% collapse upon inspiration consistent with normal right atrial pressure, 5 mmHg. Aorta The aortic root size at the sinus of Valsalva is normal. Left Ventricular Outflow Tract Name Value Normal LVOT 2D LVOT Diameter 2.0 cm LVOT Doppler LVOT Peak Gradient 4 mmHg LVOT Mean Gradient 2 mmHg LVOT VTI 18 cm LVOT VTI/AV VTI Ratio 0.8 LVOT Stroke Volume 57 ml LVOT CO 3.8 l/min LVOT CI 1.9 l/min/m2 Pulmonic Valve Name Value Normal
== END 2024-06-10 07:23 | disposition home or self-care (01) ==
LOC: ANHCARD 07:23
PROVIDERS: PCP Internal Medicine; Visit Provider Internal Medicine
DX: R94.31 Abnormal electrocardiogram [ECG] [EKG] (principal); I10 Essential (primary) hypertension; I34.0 Nonrheumatic mitral (valve) insufficiency; I35.8 Other nonrheumatic aortic valve disorders; I35.1 Nonrheumatic aortic (valve) insufficiency
CPT/HCPCS: 93306

== ENCOUNTER 2024-09-12 18:57 | Emergency (ER) | payer MEDICARE, OTHER, SELFPAY ==
--- NOTE | ~2024-09-12 | XR_ITS ---
XR chest 2V Ordering provider: Cassi Swain MD History: 68 years Male with . RT SIDED CHEST PAIN X 1 WK. WORSE TODAY . Comparison: None. FINDINGS: MEDIASTINUM: The cardiac silhouette is not enlarged. LUNGS: No infiltrates, effusions or pneumothorax. OTHER: No free air under the diaphragm. IMPRESSION: No acute cardiopulmonary pathology. Reviewed, dictated and finalized at location A.
--- NOTE | 2024-09-12 18:58 | ECG_ITS ---
Test Date: 2024-09-12 19:09:14 Measurements Intervals [place] Rate: 70 P: 32 MO: 144 QRS: 31 QRSD: 88 T: 171 QT: 390 QTc: 423 Interpretive Statements SINUS RHYTHM INCOMPLETE RIGHT BUNDLE BRANCH BLOCK T WAVE ABNORMALITY IN ANTEROLAT/HIGH LAT LEADS- CONSIDER ISCHEMIA ABNORMAL ECG No previous ECG available for comparison Electronically Signed On 09-13-2024 07:48:17 CDT by Bill Vieyra D.O.
[2024-09-12 18:59] VITALS: BP 158/75; PULSE 82; RESP 18; TEMP 36.4; O2SAT 98
[2024-09-12 19:27] LABS: Basophils Percent Auto 0.5 % (0.2-1.2); Eosinophils Absolute Auto 0.1 K/mm3 (0-0.3); Eosinophils Percent Auto 1.8 % (0-4.4); Hematocrit 43.9 % (42.0-52.0); Immature Granulocyte Absolute 0.02 K/mm3 (0.00-0.031); Immature Granulocyte Percent A 0.3 % (0-0.5); Lymphocytes Absolute Auto 2.09 K/mm3 (0.9-3.2); Lymphocytes Percent Auto 27.4 % (18.3-44.2); Mean Corpuscular HGB Conc 34.2 g/dl (32-36); Mean Corpuscular Volume 90.7 fl (80-100); Mean Platelet Volume 11.2 fl (7.4-10.4); Neutrophils Absolute Auto 4.3 K/mm3 (1.3-6.7); Platelet Count Result 195 k/mm3 (150-375); Red Blood Count 4.84 M/mm3 (4.6-6.20); Red Cell Distribution Width 13.1 % (11.5-14.5); White Blood Count 7.6 K/mm3 (4.5-10.0)
[2024-09-12 19:40] LABS: Prothrombin Time 13.9 Seconds (11.1-14.7)
[2024-09-12 19:41] LABS: Partial Thromboplastin Time 33.8 Seconds (22.3-36.8)
[2024-09-12 19:50] LABS: Alanine Aminotransferase 35 U/L (6-50); Albumin Level 4.2 g/dL (3.5-5.1); Alkaline Phosphatase 41 U/L (38-126); Anion Gap 8 mmol/L (4-12); Aspartate Amino Transferase 28 U/L (17-59); Bilirubin,Total 0.7 mg/dL (0.2-1.3); Blood Urea Nitrogen 18 mg/dL (9-20); Calcium 9.4 mg/dL (8.4-10.2); Carbon Dioxide 28 mmol/L (22-30); Chloride 103 mmol/L (98-107); Estimated CRCL calculation 52 ml/min; Estimated Glomerular Filt Rate > 60; Glucose 107 mg/dL (65-110); Sodium 139 mmol/L (137-145)
[2024-09-12 19:52] LABS: Troponin I < 0.012 ng/mL (0.000-0.034)
[2024-09-12 20:04] LABS: Lipase 63 U/L (23-300)
--- NOTE | 2024-09-12 21:06 | ED.CHESTPAIN ---
HPI - Chest Pain General Chief Complaint: Chest Pain Stated Complaint: chest pain Time Seen by Provider: 09/12/24 20:58 Source: patient Mode of arrival: ambulatory Limitations: no limitations History of Present Illness HPI narrative: This is a 68-year-old male with PMH of HTN who presents to the ED for chief complaint of chest pain ongoing for the past week. Reports that has been relatively constant but intermittent in intensity. He reports it is located on the right side and feels likely straining pain that radiates up to the shoulder. Denies any worsening of the pain with exertion. He has had intermittent bouts of shortness of breath as well. Denies fevers, chills, syncope, lightheadedness, numbness, weakness, back pain, nausea, vomiting, cough. Related Data Home Medications Medication Instructions Recorded Confirmed Bifidobacterium infantis 4 mg 4 mg PO DAILY 05/11/23 06/20/24 capsule (Align) multivitamin 1 tablet PO DAILY 05/11/23 06/20/24 Allergies Allergy/AdvReac Type Severity Reaction Status Date / Time Penicillins Allergy Unknown UNSURE OF Verified 09/12/24 19:04 REACTION Review of Systems Review of Systems: All systems as dictated in HPI [facility] Past Medical History Medical History Abnormal EKG Acid reflux Benign essential hypertension BMI 28.0-28.9,adult BMI 29.0-29.9,adult BMI 30.0-30.9,adult BPH (benign prostatic hyperplasia) Colon cancer screening Encounter for preventive health examination Encounter for routine adult health examination with abnormal findings Encounter for routine adult health examination without abnormal findings Encounter for special screening examination for neoplasm of prostate Fatigue FHx: colon cancer FHx: prostate cancer Gallbladder polyp GERD (gastroesophageal reflux disease) Hearing loss History of colon polyps Hypersomnolence Left shoulder pain Mass of buttock Mild mitral valve regurgitation Need for influenza vaccination Nocturia On long term care phlebotomist drug therapy Sinus drainage Tinnitus Vitamin D deficiency Family History Family History Father Family history of malignant neoplasm Patient's father is , Onset Age: 83 Mother Hypertension Family history of allergic disorder Other Carcinoma of colon Skin cancer Stomach cancer Social History Social History Smoking status: Never smoker Second hand tobacco smoke exposure: No Alcohol intake: current Drinks per week: 2 Substance use: never Substance use type: does not use Current Housing: I Have Housing Concerned About Future Housing: No Difficulty Paying Gas/Electric Bills: No Difficulty Paying for Meds: No Currently Unemployed: No Difficulty w/ Childcare or Family Care: No Living arrangements: with family Spiritual care concerns: No Exam Narrative: GENERAL: Well-appearing, well-nourished, and in no acute distress. HEAD: Normocephalic, atraumatic. EYES: PERRLA and EOMI. ENT: Nares clear, no rhinorrhea or epistaxis. Mucous membranes moist. Oropharynx without tonsillar hypertrophy exudate or other lesions. NECK: Supple. No adenopathy or masses. CHEST: No respiratory distress. Clear to auscultation. No wheezes rales or rhonchi HEART: Regular rate and rhythm. No murmur heard. Normal peripheral pulses. ABDOMEN: Soft, nontender, nondistended, normal active bowel sounds. MSK: Normal range of motion. No edema. SKIN: Warm, dry, no rash. NEURO: Alert and oriented x4. No focal deficits. PSYCH: Normal mood and affect. Course Vital Signs Vital signs: Vital Signs Temperature 97.5 F L 09/12/24 18:59 Pulse Rate 82 09/12/24 18:59 Respiratory Rate 18 09/12/24 18:59 Blood Pressure 158/75 H 09/12/24 18:59 Pulse Oximetry 98 09/12/24 18:59 Oxygen Delivery Room Air 09/12/24 18:59 Temperature 98.3 F 09/12/24 23:27 Pulse Rate 69 09/12/24 23:27 Respiratory Rate 21 H 09/12/24 23:27 Blood Pressure 124/69 09/12/24 23:27 Pulse Oximetry 96 09/12/24 23:27 Oxygen Delivery Room Air 09/12/24 21:21 MDM - Chest Pain MDM Narrative Medical decision making narrative: This is a 68 yo male who presents to the ED for chief complaint of chest pain intermittent over the past week. Vitals are normal. Exam is benign. Patient is resting comfortably. EKG concerning for diffuse T-wave inversion. No significant ST elevation. Able to compare with previous ECG 2017 and is similar in appearance, however V5 V6 lead seemed to have deeper T-wave inversions Lab work unremarkable overall. Troponin is normal initially. D-dimer negative. Chest x-ray: IMPRESSION: No acute cardiopulmonary pathology. Patient was started on dose of Lovenox, beta patrick and aspirin here for concern of ischemic findings on the ECG. Heart score is 5. Patient is still having some right-sided pain on re-evaluation at the 3-1/2 hour rolanda. Recommended that he stay in the hospital for chest pain workup. This patient has elected to leave against medical advice. In my opinion, the patient has capacity to leave AMA. The patient is clinically sober, free from distracting injury, appears to have intact insight and judgment and reason, and in my opinion has capacity to make decisions. I explained to the patient that his symptoms may represent unstable angina and the patient verbalized understanding of my concerns. I had a discussion with the patient about their workup and results, and that they may still have a life-threatening illness. I informed the patient that the next step in diagnosis and treatment would be further cardiac workup and they verbalized understanding of this as well. I explained the risks of leaving without further workup or treatment, which included reasonably foreseeable complications such as , serious injury, permanent disability. I also offered alternatives to departing AMA such as assigning the patient a different provider or an alternate workup pathway. The patient is refusing any further care, specifically admission for chest pain and is leaving against medical advice. I am unable to convince the patient to stay. I have asked them to return as soon as possible to complete their evaluation, and also explained that they were welcome to return to the ER for further evaluation whenever they choose. I have asked the patient to follow up with their primary doctor as soon as possible. I have answered all their questions. Patient signed AMA paperwork. Lab Data 09/12/24 19:18 09/12/24 19:18 Labs: Lab Results 09/12/24 09/12/24 09/12/24 Range/Units 19:16 19:18 22:12 WBC 7.6 (4.5-10.0) K/mm3 RBC 4.84 (4.6-6.20) M/mm3 Hgb 15.0 (14.0-18.0) g/dL Hct 43.9 (42.0-52.0) % MCV 90.7 (80-100) fl MCH 31.0 (26-34) pg MCHC 34.2 (32-36) g/dl RDW 13.1 (11.5-14.5) % Plt Count 195 (150-375) k/mm3 MPV 11.2 H (7.4-10.4) fl Immature Gran % (Auto) 0.3 (0-0.5) % Neut % (Auto) 57.0 (45.5-73.1) % Lymph % (Auto) 27.4 (18.3-44.2) % Mclean % (Auto) 13.0 H (2.6-8.5) % Eos % (Auto) 1.8 (0-4.4) % Baso % (Auto) 0.5 (0.2-1.2) % Lymph # (Auto) 2.09 (0.9-3.2) K/mm3 Mclean # (Auto) 1.0 H (0.1-0.6) K/mm3 Eos # (Auto) 0.1 (0-0.3) K/mm3 Baso # (Auto) 0.0 (0.0-0.1) K/mm3 Abs Immat Gran (auto) 0.02 (0.00-0.031) K/mm3 Absolute Neuts (auto) 4.3 (1.3-6.7) K/mm3 Absolute Nucleated RBC 0.000 (0.0-0.012) K/mm3 Nucleated RBC % 0.0 (0.0-0.2) % PT 13.9 (11.1-14.7) Seconds INR 1.0 APTT 33.8 (22.3-36.8) Seconds D-Dimer < 0.27 (<0.48) ug/mL Sodium 139 (137-145) mmol/L Potassium 4.0 (3.4-5.0) mmol/L Chloride 103 (98-107) mmol/L Carbon Dioxide 28 (22-30) mmol/L Anion Gap 8 (4-12) mmol/L BUN 18 (9-20) mg/dL Creatinine 1.20 (0.7-1.3) mg/dL Estim Creat Clear Calc 52 ml/min Estimated GFR > 60 (59 - ) Glucose 107 (65-110) mg/dL Calcium 9.4 (8.4-10.2) mg/dL Total Bilirubin 0.7 (0.2-1.3) mg/dL AST 28 (17-59) U/L ALT 35 (6-50) U/L Alkaline Phosphatase 41 (38-126) U/L Troponin I < 0.012 < 0.012 (0.000-0.034) ng/mL Total Protein 7.0 (6.3-8.2) g/dL Albumin 4.2 (3.5-5.1) g/dL Lipase 63 (23-300) U/L ECG Data EKG #1: ECG completion date: 09/12/24 ECG completion time: 18:58 Prior ECG tracings: available for review Interpretation: Sinus rhythm Rate 70 QRS normal QTC normal T-wave inversions noted rather diffusely. This is consistent with EKG in 2017, however may be slightly more deeply inverted in V4 5. Slight, 0.5 elevation in V3. No STEMI EKG #2: ECG completion date: 09/12/24 ECG completion time: 22:15 Prior ECG tracings: available for review Interpretation: Sinus rhythm Rate 65 QRS normal QTC normal No significant changes compared ECG 3 hours prior Discharge Plan Discharge Clinical Impression: Chest pain Patient Disposition: Left Against Medical Advice Condition: Stable Prescriptions: No Action multivitamin Tablet 1 tablet PO DAILY Align 4 mg capsule 4 mg PO DAILY zolpidem 10 mg tablet 10 mg PO ONCE Qty: 2 0RF tamsulosin 0.4 mg capsule See Rx Instructions .ROUTE .COMPLEX Qty: 90 2RF Dose Instruction: TAKE 1 CAPSULE BY MOUTH DAILY Rx Instructions: TAKE 1 CAPSULE BY MOUTH DAILY pantoprazole 20 mg tablet,delayed release (DR/EC) See Rx Instructions .ROUTE .COMPLEX Qty: 90 2RF Dose Instruction: TAKE 1 TABLET BY MOUTH EVERY MORNING Rx Instructions: TAKE 1 TABLET BY MOUTH EVERY MORNING (DME) CPAP machine/equipment See Rx Instructions .Route .MEDSUPPLY Qty: 1 0RF Rx Instructions: As directed losartan 50 mg tablet See Rx Instructions .ROUTE .COMPLEX Qty: 90 0RF Dose Instruction: TAKE 1 TABLET BY MOUTH DAILY Rx Instructions: TAKE 1 TABLET BY MOUTH DAILY Follow-up/Referrals: Souleymane Pollard MD [Primary Care Provider] - Time of Disposition: 23:07 Quality HEART score for chest pain patients History: moderately suspicious ECG: non specific repolarization disturbance/LBTB/PM Age: > or = to 65 years Risk factors: 1 or 2 risk factors Troponin: < or = to 1x normal limit Heart score: 5
[2024-09-12 21:21] VITALS: O2SAT 99
[2024-09-12 21:24] VITALS: BP 122/65; PULSE 64; RESP 17; TEMP 36.8; O2SAT 99
[2024-09-12] MEDS: ENOXAPARIN 100 MG/ML SYRINGE 86 MG SUB-Q (21:28)
[2024-09-12] MEDS: ASPIRIN 81 MG CHEWABLE TABLET 324 MG PO (21:29)
[2024-09-12 21:36] VITALS: PULSE 69
[2024-09-12 21:36] LABS: D Dimer < 0.27 ug/mL (<0.48)
[2024-09-12] MEDS: METOPROLOL SUCCINATE EXT REL 25 MG TABCR PO (21:36)
--- NOTE | 2024-09-12 22:14 | ECG_ITS ---
Test Date: 2024-09-12 22:15:56 Measurements Intervals [place] Rate: 65 P: 39 NM: 144 QRS: 31 QRSD: 89 T: 179 QT: 429 QTc: 447 Interpretive Statements SINUS RHYTHM INCOMPLETE RIGHT BUNDLE BRANCH BLOCK ST-T WAVE ABNORMALITY IN ANTEROLAT/HIGH LAT LEADS- CONSIDER ISCHEMIA BASELINE ARTIFACT- I, III, AVR, AVL, AVF ABNORMAL ECG Compared to ECG 09/12/2024 19:09:14 NO SIGNIFICANT CHANGE Electronically Signed On 09-13-2024 08:08:54 CDT by Bill Vieyra D.O.
[2024-09-12 22:41] LABS: Troponin I < 0.012 ng/mL (0.000-0.034)
[2024-09-12 23:27] VITALS: BP 124/69; PULSE 69; RESP 21; TEMP 36.8; O2SAT 96
== END 2024-09-12 23:40 | disposition left against medical advice (07) ==
PROVIDERS: Student in an Organized Health Care Education/Training Program; Emergency Provider Physician Assistant; PCP Internal Medicine
DX: R07.9 Chest pain, unspecified (principal); I10 Essential (primary) hypertension; K21.9 Gastro-esophageal reflux disease without esophagitis; E55.9 Vitamin D deficiency, unspecified
CPT/HCPCS: 36415; 71046; 80053; 83690; 84484; 85025; 85380; 85610; 85730; 93005; 96372; 99284; A9270; J1650

== ENCOUNTER 2024-10-24 08:09 | Outpatient (CLI) | payer MEDICARE, OTHER, SELFPAY ==
[2024-10-24 09:07] LABS: Anion Gap 2 mmol/L (4-12); Blood Urea Nitrogen 23 mg/dL (9-20); Calcium 9.2 mg/dL (8.4-10.2); Carbon Dioxide 31 mmol/L (22-30); Chloride 105 mmol/L (98-107); Cholesterol 154 mg/dL (0-200); Estimated Glomerular Filt Rate > 60; Glucose 106 mg/dL (65-110); HDL Direct 46 mg/dL; Potassium 4.3 mmol/L (3.4-5.0); Sodium 138 mmol/L (137-145); Triglycerides 63 mg/dL (<150)
[2024-10-24 09:18] LABS: LDL Cholesterol Direct 79 mg/dL
[2024-10-24 09:42] LABS: Free T4 Free Thyroxine 0.88 ng/dL (0.78-2.19)
[2024-10-24 10:38] LABS: Hemoglobin A1C 5.6 % (<5.7)
== END 2024-10-24 08:10 | disposition home or self-care (01) ==
PROVIDERS: PCP Internal Medicine; Visit Provider Internal Medicine
DX: R73.01 Impaired fasting glucose (principal); I10 Essential (primary) hypertension; Z13.29 Encounter for screening for other suspected endocrine disorder; Z12.5 Encounter for screening for malignant neoplasm of prostate; Z13.220 Encounter for screening for lipoid disorders; Z79.899 Other long term (current) drug therapy
CPT/HCPCS: 36415; 80048; 80061; 83036; 84153; 84439; 84443; G0103

== ENCOUNTER 2025-06-02 07:34 | Outpatient (CLI) | payer MEDICARE, SELFPAY ==
[2025-06-02 19:05] LABS: Hematocrit 44.1 % (42.0-52.0); Hemoglobin 14.6 g/dL (14.0-18.0); Immature Granulocyte Percent A 0.3 % (0-0.5); Lymphocytes Absolute Auto 2.45 K/mm3 (0.9-3.2); Mean Corpuscular HGB Conc 33.1 g/dl (32-36); Mean Corpuscular Hemoglobin 30.5 pg (26-34); Mean Corpuscular Volume 92.1 fl (80-100); Nucleated Red Blood Cells Absolute Auto 0.000 K/mm3 (0.0-0.012); Nucleated Red Blood Cells Perc 0.0 % (0.0-0.2); Platelet Count Result 208 k/mm3 (150-375); Red Blood Count 4.79 M/mm3 (4.6-6.20); White Blood Count 7.8 K/mm3 (4.5-10.0)
[2025-06-02 19:20] LABS: Alanine Aminotransferase 30 U/L (6-50); Albumin Level 4.0 g/dL (3.5-5.1); Alkaline Phosphatase 42 U/L (38-126); Anion Gap 6 mmol/L (4-12); Aspartate Amino Transferase 42 U/L (17-59); Bilirubin,Total 0.7 mg/dL (0.2-1.3); Blood Urea Nitrogen 21 mg/dL (9-20); Calcium 9.4 mg/dL (8.4-10.2); Carbon Dioxide 27 mmol/L (22-30); Chloride 105 mmol/L (98-107); Cholesterol 144 mg/dL (0-200); Estimated Glomerular Filt Rate > 60; Glucose 106 mg/dL (65-110); HDL Direct 44 mg/dL; Potassium 4.7 mmol/L (3.4-5.0); Sodium 138 mmol/L (137-145); Total Protein 6.8 g/dL (6.3-8.2); Triglycerides 62 mg/dL (<150)
[2025-06-02 19:38] LABS: Free T4 Free Thyroxine 0.88 ng/dL (0.78-2.19)
[2025-06-02 19:57] LABS: Thyroid Stimulating Hormone 0.885 uIU/mL (0.465-4.680)
[2025-06-02 20:59] LABS: Hemoglobin A1C 5.7 % (<5.7)
== END 2025-06-02 07:35 | disposition home or self-care (01) ==
PROVIDERS: PCP Internal Medicine; Visit Provider Internal Medicine
DX: Z13.220 Encounter for screening for lipoid disorders (principal); Z13.29 Encounter for screening for other suspected endocrine disorder; I10 Essential (primary) hypertension; E55.9 Vitamin D deficiency, unspecified; R73.01 Impaired fasting glucose; Z79.899 Other long term (current) drug therapy
CPT/HCPCS: 36415; 80053; 80061; 82306; 83036; 84439; 84443; 85025

== ENCOUNTER 2025-09-02 10:38 | Outpatient (CLI) | payer MEDICARE, OTHER, SELFPAY ==
--- NOTE | ~2025-09-02 | XR_ITS ---
EXAMINATION: XR knee LT 3V, 09/02/2025 10:45 CDT HISTORY: M25.562 - Pain in left knee/STS MEDIAL SIDE COMPARISON: No comparisons available. Findings: No acute fracture or malalignment. Moderate tricompartmental degenerative changes with chondrocalcinosis and small effusion Soft tissues unremarkable. Impression: No acute fracture or malalignment. Reviewed, dictated and finalized at location P. Impression: No acute fracture or malalignment.
== END 2025-09-02 10:39 | disposition home or self-care (01) ==
LOC: ANHASCIMG 10:42
PROVIDERS: PCP Internal Medicine; Visit Provider Internal Medicine
DX: M25.562 Pain in left knee (principal)
CPT/HCPCS: 73562